=== PATIENT | male | born 1985 | race Caucasian/White ===

== ENCOUNTER 2018-11-30 11:37 | Emergency (ER) | payer OTHER ==
[~2018-11-30] VITALS: Ht 188 cm; Wt 88.5 kg
[2018-11-30 11:46] VITALS: Ht 188 cm; Wt 88.5 kg
[2018-11-30 12:45] VITALS: BP 140/70
== END 2018-11-30 12:45 | disposition home or self-care (01) ==
LOC: ED 11:37
DX: F41.9 Anxiety disorder, unspecified (principal); R03.0 Elevated blood-pressure reading, without diagnosis of hypertension